=== PATIENT | female | born 1985 | race Hispanic/Latino ===

== ENCOUNTER 2021-03-16 18:58 | Day surgery (SDC) | payer OTHER, SELFPAY ==
[2021-03-16] MEDS ORDERED: hydrALAZINE 20 MG/ML VIAL SLOW IVP PRN (20:31)
[2021-03-16 22:04] VITALS: BMI 29.0
== END 2021-03-16 22:29 | disposition home or self-care (01) ==
LOC: CSHLD/OP 18:58
PROVIDERS: ATTEND Family Medicine
DX: O47.03 False labor before 37 completed weeks of gestation, third trimester (principal); Z3A.36 36 weeks gestation of pregnancy; Z79.899 Other long term (current) drug therapy
CPT/HCPCS: 99283

== ENCOUNTER 2021-04-03 16:26 | Day surgery (SDC) | payer OTHER ==
[2021-04-03 18:21] VITALS: BMI 28.6
[2021-04-03] MEDS ORDERED: hydrALAZINE 20 MG/ML VIAL SLOW IVP PRN (19:14)
[2021-04-03] MEDS ORDERED: Acetaminophen 500 MG TAB PO SCH (19:15)
== END 2021-04-03 19:32 | disposition home or self-care (01) ==
LOC: CSHLD/OP 16:26
PROVIDERS: ATTEND Family Medicine
DX: O47.03 False labor before 37 completed weeks of gestation, third trimester (principal); O99.013 Anemia complicating pregnancy, third trimester; O99.820 Streptococcus B carrier state complicating pregnancy; Z3A.36 36 weeks gestation of pregnancy

== ENCOUNTER 2021-04-14 05:47 | Day surgery (SDC) | payer OTHER ==
[2021-04-14 06:02] VITALS: BMI 29.0
[2021-04-14] MEDS ORDERED: hydrALAZINE 20 MG/ML VIAL SLOW IVP PRN (06:19)
[2021-04-14] MEDS ORDERED: Acetaminophen 500 MG TAB PO SCH (06:45)
== END 2021-04-14 08:51 | disposition home or self-care (01) ==
LOC: CSHLD/OP 05:47
PROVIDERS: ATTEND Family Medicine
DX: O47.1 False labor at or after 37 completed weeks of gestation (principal); Z3A.38 38 weeks gestation of pregnancy